=== PATIENT | male | born 1975 | race Caucasian/White ===

== ENCOUNTER → 2020-05-20 | Outpatient (CLI) | payer MEDICARE, OTHER ==
[~2020-05-20] MED LIST: FLOMAX0.4 MG PO; HUMALOG 10100 UNITS/ SC; LIORESAL TAB 1010 MG PO; LIPITOR40 MG PO; NABUMETONE500 MG PO; NEURONTIN600 MG PO; ZYRTEC10 M3 PO
== END ==
LOC: EMI 09:59
DX: M75.101 Unspecified rotator cuff tear or rupture of right shoulder, not specified as traumatic (principal); M75.41 Impingement syndrome of right shoulder
CPT/HCPCS: 73221

== ENCOUNTER → 2020-07-30 | Outpatient (CLI) | payer MEDICARE, OTHER | LOC: KOH-I 10:36 | DX: E78.2 Mixed hyperlipidemia (principal) | CPT/HCPCS: 73030 ==

== ENCOUNTER → 2021-10-28 | Outpatient (CLI) | payer MEDICARE, OTHER ==
[~2021-10-28] VITALS: Ht 167.6 cm; Wt 98.9 kg
== END ==
LOC: EROP 12:29
DX: U07.1 COVID-19 (principal); Z23 Encounter for immunization; E11.9 Type 2 diabetes mellitus without complications
CPT/HCPCS: M0222; Q0222